=== PATIENT | female | born 2000 ===

== ENCOUNTER 2019-04-14 20:19 | Emergency (ER) | payer OTHER ==
--- NOTE | 2019-04-14 20:21 | UC ---
Lower Extremity/Ankle HPI - HPI Summary HPI Summary: 19 yo female presents with LEFT foot pain. She tells me that she ran a half marathon on 04/16 and since that time has notice lateral midfoot pain that is worse with weight bearing. Better with rest. She has been taking ibuprofen with little relief. Denies specific injury, numbness, or tingling. - History of Current Complaint Stated Complaint: L FOOT INJURY Time Seen by Provider: 04/14/19 20:21 Hx Obtained From: Patient Onset/Duration: Sudden Onset Severity Initially: Moderate Severity Currently: Moderate Pain Intensity: 5 Pain Scale Used: 0-10 Numeric Aggravating Factor(s): Standing, Ambulation - Allergies/Home Medications Allergies/Adverse Reactions: Allergies Allergy/AdvReac Type Severity Reaction Status Date / Time No Known Allergies Allergy Verified 04/14/19 20:31 Home Medications: Home Medications Copper (Iud) [Paragard IUD] 1 unit IU ONCE 04/14/19 [History Confirmed 04/14/19] Desogestrel-Ethinyl Estradiol [Cyred 0.15-30 mg-Mcg] 1 tab PO DAILY WITH MEAL [History Confirmed 04/14/19] PMH/Surg Hx/FS Hx/Imm Hx - Additional Past Medical History Additional PMH: None - Surgical History Surgical History: Yes Surgery Procedure, Year, and Place: Left knee x3 - Family History Known Family History: Positive: None - Social History Occupation: Student Lives: Dormitory/Roommates Alcohol Use: Occasionally Substance Use Type: None Smoking Status (MU): Never Smoked Tobacco Review of Systems All Other Systems Reviewed And Are Negative: No Constitutional: Positive: Negative Skin: Positive: Negative Respiratory: Positive: Negative Cardiovascular: Positive: Negative Neurovascular: Positive: Negative Musculoskeletal: Positive: Other: - Left foot pain Neurological: Positive: Negative Physical Exam - Summary Physical Exam Summary: GENERAL: NAD. WDWN. No pain distress. SKIN: No rashes, sores, lesions, or open wounds. CHEST: No accessory muscle use. Breathing comfortably and in no distress. CV: Pulses intact PT and DP. Cap refill <2seconds MSK: LEFT FOOT: Mild TTP about 4th base MT. Strength 5/5. No edema or obvious bony deformities. Moves all toes without pain. LEFT ANKLE: NTTP FROM NEURO: Alert. Sensations intact and symmetric B/L LEs PSYCH: Age appropriate behavior. Triage Information Reviewed: Yes Vital Signs: Vital Signs: Temp Pulse Resp BP Pulse Ox 99.7 F 73 16 126/77 100 04/14/19 20:25 04/14/19 20:25 04/14/19 20:25 04/14/19 20:25 04/14/19 20:25 Vital Signs Reviewed: Yes Diagnostics - Radiology Foot XR Radiology Interpretation Completed By: ED Physician Summary of Radiographic Findings: No fx Lower Extremity Course/Dx - Course Course Of Treatment: XR wet read negative for fx Suspect tedinitis vs occult fx. Pt was placed in a CAM boot and advised to RICE and f/u with [facility] - Differential Dx/Diagnosis Provider Diagnosis: Foot tendinitis Discharge ED - Sign-Out/Discharge Documenting (check all that apply): Patient Departure All imaging exams completed and their final reports reviewed: No - Discharge Plan Condition: Stable Disposition: HOME Patient Education Materials: Tendinitis (ED) Referrals: No Primary Care Phys,NOPCP [Primary Care Provider] - [facility] [Provider Group] - As Soon As Possible Additional Instructions: If you develop a fever, shortness of breath, chest pain, new or worsening symptoms - please call your PCP or go to the ED immediately. Your X-ray appears normal this evening. I recommend that you rest, ice, and elevate your foot. Use the walking boot as much as possible to reduce pain. Please follow up with [facility] within 1-2 weeks if your symptoms persist - Billing Disposition and Condition Condition: STABLE Disposition: Home
[2019-04-14 20:31] VITALS: BP 126/77
--- NOTE | 2019-04-15 13:12 | UC ---
- Progress Note Progress Note: PROGRESS NOTE: MDM:x-ray negative for fracture. No change in treatment. Everardo Pryor MD Course/Dx - Diagnoses Provider Diagnoses: Foot tendinitis Discharge ED - Sign-Out/Discharge Documenting (check all that apply): Post-Discharge Follow Up All imaging exams completed and their final reports reviewed: Yes - Discharge Plan Condition: Stable Disposition: HOME Patient Education Materials: Tendinitis (ED) Referrals: [facility] [Provider Group] - As Soon As Possible No Primary Care Phys,NOPCP [Primary Care Provider] - Additional Instructions: If you develop a fever, shortness of breath, chest pain, new or worsening symptoms - please call your PCP or go to the ED immediately. Your X-ray appears normal this evening. I recommend that you rest, ice, and elevate your foot. Use the walking boot as much as possible to reduce pain. Please follow up with [facility] within 1-2 weeks if your symptoms persist - Billing Disposition and Condition Condition: STABLE Disposition: Home
== END 2019-04-14 20:59 | disposition home or self-care (01) ==
LOC: UCEAST 20:19
DX: M77.52 Other enthesopathy of left foot and ankle (principal)
CPT/HCPCS: 99202; G0463